=== PATIENT | female | born 1960 | race Caucasian/White ===

== ENCOUNTER 2024-11-18 13:46 | Outpatient (RCR) | payer BC, SELFPAY ==
[2024-11-18 14:08] VITALS: BP 117/63
[2024-11-18] MEDS: RECLAST 100 IV (14:09)
== END 2024-11-19 08:07 | disposition home or self-care (01) ==
LOC: OID 13:46
PROVIDERS: ATTENDING PHYSICIAN Internal Medicine Endocrinology, Diabetes & Metabolism; FAMILY PHYSICIAN Family Medicine
DX: M81.0 Age-related osteoporosis without current pathological fracture (principal)
CPT/HCPCS: 96365; J3489